=== PATIENT | female | born 1970 | race Caucasian/White ===

== ENCOUNTER 2018-01-11 13:04 | Emergency (ER) | payer OTHER, SELFPAY ==
[~2018-01-11] VITALS: Ht 167.6 cm; Wt 100.7 kg
[2018-01-11 13:18] VITALS: BP 141/93
[2018-01-11] MEDS ORDERED: IBUPROFEN 200 MG TABLET PO ONE (13:30)
[2018-01-11] MEDS ORDERED: IBUPROFEN 200 MG TABLET ONE (13:33)
== END 2018-01-11 14:36 | disposition home or self-care (01) ==
LOC: ED 14:20
DX: S63.522A Sprain of radiocarpal joint of left wrist, initial encounter (principal); X50.1XXA Overexertion from prolonged static or awkward postures, initial encounter; Y93.89 Activity, other specified; Y99.8 Other external cause status; Y92.009 Unspecified place in unspecified non-institutional (private) residence as the place of occurrence of the external cause
CPT/HCPCS: 29260; 99284